=== PATIENT | male | born 2000 | race Caucasian/White ===

== ENCOUNTER 2022-05-28 22:39 | Emergency (ER) | payer OTHER ==
[~2022-05-28] VITALS: Ht 175.3 cm; Wt 72.6 kg
[2022-05-28] MEDS ORDERED: NS IV 1000 ML 1,000 ML IV STA (23:37)
--- NOTE | 2022-05-28 23:40 | ED Abdominal Pain ---
General Chief Complaint: Abdominal/GI Problems Stated Complaint: RIGHT SIDE ABDOMINAL PAIN Source of Information: Patient Exam Limitations: No Limitations History of Present Illness Date Seen by Provider: May 28, 2022 Time Seen by Provider: 23:30 Timing/Duration: 1-3 Hours Severity/Quality: Severe ("11"), Aching Location: RLQ Radiation: Groin (testicles) Activities at Onset: None Modifying Factors: Worsens With Movement Associated Symptoms: Nausea/Vomiting Allergies and Home Medications Allergies Coded Allergies: No Known Drug Allergies (Unverified , 05/28/22) Patient Home Medication List Home Medication List Reviewed: Yes Hydrocodone/Acetaminophen (Hydrocodone-Acetamin 5-325 mg) 5 Mg-325 Mg Tablet, 1 TAB PO Q6H PRN for PAIN-MODERATE (5-7) Prescribed by: JED PATINO on 05/29/22101 Ondansetron (Ondansetron Odt) 4 Mg Tab.rapdis, 4 MG SL Q8H PRN for NAUSEA/VOMITING Prescribed by: JED PATINO on 05/29/22101 Tamsulosin HCl (Flomax) 0.4 Mg Cap, 0.4 MG PO HS Prescribed by: JED PATINO on 05/29/22101 Review of Systems Review of Systems Constitutional: see HPI EENTM: No Symptoms Reported Respiratory: No Symptoms Reported Cardiovascular: No Symptoms Reported Gastrointestinal: Abdominal Pain Genitourinary: Denies Burning; Other ("darker" than normal) Skin: no symptoms reported Psychiatric/Neurological: No Symptoms Reported All Other Systems Reviewed Negative Unless Noted: Yes Physical Exam Vital Signs Vital Signs - First Documented 05/28/22 23:00 Temp 36.0 Pulse 67 Resp 20 B/P (MAP) 148/78 (101) Pulse Ox 100 O2 Delivery Room Air Capillary Refill : Height/Weight/BMI Height: '" Weight: lbs. oz. kg; BMI Method: General Appearance: WD/WN, no apparent distress, thin HEENT: PERRL/EOMI Respiratory: lungs clear, normal breath sounds, no respiratory distress, no accessory muscle use Cardiovascular: regular rate, rhythm Gastrointestinal: soft, tenderness (mild tenderness RLQ; no rebound r involuntary guarding) Back: other (tenderness low right flank) Progress/Results/Core Measures Results/Orders Lab Results Laboratory Tests Test 05/28/22 23:20 05/28/22 23:23 Range/Units Urine Color DARK YELLOW Urine Clarity CLEAR Urine pH 6.0 5-9 Urine Specific [place] >=1.030 1.016-1.022 Urine Protein 2+ H NEGATIVE Urine Glucose (UA) NEGATIVE NEGATIVE Urine Ketones NEGATIVE NEGATIVE Urine Nitrite NEGATIVE NEGATIVE Urine Bilirubin NEGATIVE NEGATIVE Urine Urobilinogen 1.0 < = 1.0 MG/DL Urine Leukocyte Esterase NEGATIVE NEGATIVE Urine RBC (Auto) 3+ H NEGATIVE Urine RBC TNTC H /HPF Urine WBC 0-2 /HPF Urine Squamous Epithelial Cells RARE /HPF Urine Crystals NONE /LPF Urine Bacteria TRACE /HPF Urine Casts NONE /LPF Urine Mucus SMALL H /LPF Urine Culture Indicated NO White Blood Count 6.1 4.3-11.0 10^3/uL Red Blood Count 4.98 4.30-5.52 10^6/uL Hemoglobin 15.5 13.3-17.7 g/dL Hematocrit 44 40-54 % Mean Corpuscular Volume 88 80-99 fL Mean Corpuscular Hemoglobin 31 25-34 pg Mean Corpuscular Hemoglobin Concent 35 32-36 g/dL Red Cell Distribution Width 11.5 10.0-14.5 % Platelet Count 193 130-400 10^3/uL Mean Platelet Volume 10.5 9.0-12.2 fL Immature Granulocyte % (Auto) 0 % Neutrophils (%) (Auto) 52 42-75 % Lymphocytes (%) (Auto) 40 12-44 % Monocytes (%) (Auto) 7 0-12 % Eosinophils (%) (Auto) 1 0-10 % Basophils (%) (Auto) 1 0-10 % Neutrophils # (Auto) 3.1 1.8-7.8 10^3/uL Lymphocytes # (Auto) 2.4 1.0-4.0 10^3/uL Monocytes # (Auto) 0.4 0.0-1.0 10^3/uL Eosinophils # (Auto) 0.1 0.0-0.3 10^3/uL Basophils # (Auto) 0.0 0.0-0.1 10^3/uL Immature Granulocyte # (Auto) 0.0 0.0-0.1 10^3/uL Sodium Level 141 135-145 MMOL/L Potassium Level 3.3 L 3.6-5.0 MMOL/L Chloride Level 106 98-107 MMOL/L Carbon Dioxide Level 22 21-32 MMOL/L Anion Gap 13 5-14 MMOL/L Blood Urea Nitrogen 14 7-18 MG/DL Creatinine 1.05 0.60-1.30 MG/DL Estimat Glomerular Filtration Rate 104 BUN/Creatinine Ratio 13 Glucose Level 101 70-105 MG/DL Calcium Level 9.6 8.5-10.1 MG/DL My Orders Orders - JED PATINO MD Ed Iv/Invasive Line Start (05/28/22 23:37) Cbc With Automated Diff (05/28/22 23:37) Basic Metabolic Panel (05/28/22 23:37) Ua Culture If Indicated (05/28/22 23:37) Ns Iv 1000 Ml (Sodium Chloride 0.9%) (05/28/22 23:37) Ketorolac Injection (Toradol Injection) (05/28/22 23:45) Ondansetron Injection (Zofran Injectio (05/28/22 23:45) Ct Abd/Pelvis Wo(Kidney Stone) (05/29/22 00:01) Abdomen/Kub 1view (05/29/22 00:01) Tamsulosin Capsule (Flomax Capsule) (05/29/22 18:00) Rx-Hydrocodone/Apap 5-325 Mg (Rx-Vicodin (05/29/22 01:15) Medications Given in ED Current Medications Medications Dose Ordered Sig/Charlie Route Start Time Stop Time Status Last Admin Dose Admin Ketorolac Tromethamine 15 mg ONCE ONCE IVP 05/28/22 23:45 05/28/22 23:46 DC 05/28/22 23:51 15 MG Vital Signs/I&O 05/28/22 23:00 Temp 36.0 Pulse 67 Resp 20 B/P (MAP) 148/78 (101) Pulse Ox 100 O2 Delivery Room Air Progress Progress Note : Time: 00:59 Diagnostic Imaging Diagonstic Imaging: Xray Comments KUB, independently interpreted by me, I do not clearly see evidence of a right- sided kidney stone. Nonspecific bowel gas pattern Diagonstic Imaging: CT Plain Films/CT/US/NM/MRI: abdomen, pelvis Comments CT scan abdomen and pelvis renal stone protocol, independently interpreted by me, 4.5 mm kidney stone right prox ureter, slight hydronephrosis Departure Impression Primary Impression: Kidney stone on right side Disposition: HOME, SELF-CARE Condition: Improved Departure-Patient Inst. Decision time for Depature: 01:00 Referrals: RYAN DONG MD (PCP) Primary Care Physician Patient Instructions: Kidney Stone, Adult ED Add. Discharge Instructions: Drink lots of fluids to stay well-hydrated. 1 gallon of water a day for the next couple of days. Flomax 0.4 mg tablets at night for the next week. This will help increase urine flow. Turd-[id number] ibuprofen 3 tablets which is 600 mg every 6-8 hours with food as needed for pain. Hydrocodone 5 mg tablets 1 every 6 hours as needed for more severe pain. Zofran 4 mg tablets every 8 hours as needed for nausea and vomiting. If you develop a fever, worsening pain not controlled by medication or any other emergent, concerning symptoms please return to the emergency room for reevaluation. Scripts Tamsulosin HCl (Flomax) 0.4 Mg Cap 0.4 MG PO HS, #5 CAP Prov: JED PATINO MD 05/29/22 Ondansetron (Ondansetron Odt) 4 Mg Tab.rapdis 4 MG SL Q8H PRN for NAUSEA/VOMITING, #10 TAB Prov: JED PATINO MD 05/29/22 Hydrocodone/Acetaminophen (Hydrocodone-Acetamin 5-325 mg) 5 Mg-325 Mg Tablet 1 TAB PO Q6H PRN for PAIN-MODERATE (5-7), #10 TAB Prov: JED PATINO MD 05/29/22 JED PATINO MD May 28, 2022 23:40
[2022-05-28 23:44] LABS: BASOPHILS % (AUTO) 1 % (0-10); EOSINOPHILS # (AUTO) 0.1 10^3/uL (0.0-0.3); EOSINOPHILS % (AUTO) 1 % (0-10); HEMATOCRIT 44 % (40-54); HEMOGLOBIN 15.5 g/dL (13.3-17.7); LYMPHOCYTES # (AUTO) 2.4 10^3/uL (1.0-4.0); LYMPHOCYTES % (AUTO) 40 % (12-44); MEAN CORPUSCULAR HEMOGLOBIN 31 pg (25-34); MEAN CORPUSCULAR HGB CONC 35 g/dL (32-36); MEAN CORPUSCULAR VOLUME 88 fL (80-99); MEAN PLATELET VOLUME 10.5 fL (9.0-12.2); MONOCYTES # (AUTO) 0.4 10^3/uL (0.0-1.0); MONOCYTES % (AUTO) 7 % (0-12); NEUTROPHILS # (AUTO) 3.1 10^3/uL (1.8-7.8); NEUTROPHILS % (AUTO) 52 % (42-75); PLATELET COUNT 193 10^3/uL (130-400); WHITE BLOOD COUNT 6.1 10^3/uL (4.3-11.0)
[2022-05-28] MEDS ORDERED: ONDANSETRON 4 MG/2 ML (SDV) Z0FRAN IVP ONE (23:45)
[2022-05-28] MEDS ORDERED: KETOROLAC 15 MG/ML VIAL IVP ONE (23:45)
[2022-05-28 23:47] LABS: BILIRUBIN,URINE NEGATIVE (NEGATIVE); CLARITY,URINE CLEAR; COLOR,URINE DARK YELLOW; GLUCOSE, URINE (UA) NEGATIVE (NEGATIVE); KETONES,URINE NEGATIVE (NEGATIVE); LEUKOCYTE ESTERASE ,URINE NEGATIVE (NEGATIVE); NITRITE,URINE NEGATIVE (NEGATIVE); PROTEIN,URINE 2+ (NEGATIVE)
[2022-05-28 23:49] LABS: POTASSIUM 3.3 MMOL/L (3.6-5.0)
[2022-05-28 23:50] LABS: CALCIUM 9.6 MG/DL (8.5-10.1)
[2022-05-28 23:55] LABS: CREATININE SERUM 1.05 MG/DL (0.60-1.30)
[2022-05-28 23:57] LABS: BACTERIA,URINE TRACE /HPF; RBC,URINE TNTC /HPF; SQUAMOUS EPITHELIAL CELL,UR RARE /HPF; WBC,URINE 0-2 /HPF
[2022-05-29] MEDS ORDERED: TMSL.4C PO (01:02)
[2022-05-29] MEDS ORDERED: ACHD5005 PO (01:02)
[2022-05-29] MEDS ORDERED: ONDA4TAB11 SL (01:02)
[2022-05-29] MEDS ORDERED: TAMSULOSIN 0.4 MG (FLOMAX) CAP PO ONE (01:18)
[2022-05-29 01:38] VITALS: BP 113/64
--- NOTE | 2022-05-29 05:13 | Diagnostic Imaging Report ---
INDICATION: Right flank pain KUB 12:41 AM Lung bases are clear. Bowel gas pattern is normal. There are no pathologic masses or calcifications. IMPRESSION: No acute abnormalities in the abdomen Dictated by: Dictated on workstation # [id number]
--- NOTE | 2022-05-29 06:52 | Diagnostic Imaging Report ---
PROCEDURE: CT urinary tract, rule out kidney stone. TECHNIQUE: Multiple contiguous axial images were obtained through the abdomen and pelvis without the use of intravenous contrast. Auto Exposure Controls were utilized during the CT exam to meet ALARA standards for radiation dose reduction. INDICATION: Right flank pain Lung bases are clear. Liver appears normal. Pancreas is normal. Spleen is not enlarged. Adrenals are normal. Left kidney is normal. There is hydronephrosis of the right kidney. There is 5 mm calculus the proximal right ureter causing obstruction. Urinary bladder is normal. Prostate and seminal vessels are unremarkable. Appendix is normal. Large and small bowel appear normal. There is no intraperitoneal free air or free fluid. IMPRESSION: 5 mm obstructing calculus proximal right ureter. I agree with preliminary interpretation. Dictated by: Dictated on workstation # [id number]
[2022-05-29] MEDS ORDERED: TAMSULOSIN 0.4 MG (FLOMAX) CAP PO SCH (18:00)
== END 2022-05-29 01:42 | disposition home or self-care (01) ==
LOC: ER 22:46
DX: N13.2 Hydronephrosis with renal and ureteral calculous obstruction (principal); Z28.310 Unvaccinated for COVID-19
CPT/HCPCS: 36415; 74018; 74176; 80048; 81000; 85025